=== PATIENT | female | born 1990 | race Caucasian/White ===

== ENCOUNTER → 2020-03-13 08:19 | Outpatient (CLI) | payer OTHER, SELFPAY ==
--- NOTE | ~2020-03-13 | US_ITS ---
EXAMINATION: US OB transvaginal DATE: 03/13/2020 08:50 INDICATION: Uncertain dates. TECHNIQUE: Real-time transvaginal pelvic ultrasound was performed. COMPARISON: None. FINDINGS: The uterus measures 8.9 x 4.1 x 5.0 cm. There is an intrauterine gestational sac. A yolk sac is ident ified. The crown rump length measures 5 mm, which correlates with an estimated gestational age of 6 weeks and 1 day(s) (+/-) 4 day(s). heart motion is identified measuring 122 beats per min [place] (bpm) by M-mode Doppler. There is a small subchorionic hematoma. The right ovary measures 2.8 x 1 .9 x 3.0 cm. The left ovary measures 4.0 x 2.1 x 2.5 cm. There is no free fluid in the pelvis. IMPRESSION: 1. Single living intrauterine gestation with estimated date of delivery of 11/05/2020. 2. Small subchorionic hematoma. Reviewed, dictated and finalized at location A. IMPRESSION: 1. Single living intrauterine gestation with estimated date of delivery of 11/05. 2. Small subchorionic hematoma.
== END ==
PROVIDERS: PCP Family Medicine; Visit Provider Obstetrics & Gynecology
DX: Z36.9 Encounter for antenatal screening, unspecified (principal); Z3A.00 Weeks of gestation of pregnancy not specified; O46.90 Antepartum hemorrhage, unspecified, unspecified trimester
CPT/HCPCS: 76817

== ENCOUNTER → 2020-04-10 08:25 | Outpatient (CLI) | payer OTHER, SELFPAY ==
--- NOTE | ~2020-04-10 | US_ITS ---
EXAMINATION: US OB limited DATE: 04/10/2020 08:50 INDICATION: Subchorionic hemorrhage follow-up TECHNIQUE: Real-time transabdominal and transvaginal obstetric ultrasound. FINDINGS: Ultrasound dated 03/13/2020 The uterus measures 10.2 x 7.9 x 9.1 cm. There is a small subchorionic hemorrhage measuring 1.2 x 1 x 0.5 cm. There is an intrauterine gestational sac, with pole identified. heart rate is 17 4 BPM. IMPRESSION: 1. Single living intrauterine with heart rate of 173 BPM. 2: Small residual subchorionic hemorrhage measuring 12 x 10 x 5 mm. Reviewed, dictated and finalized at location A.
== END ==
PROVIDERS: Visit Provider Obstetrics & Gynecology
DX: O36.8910 Maternal care for other specified fetal problems, first trimester, not applicable or unspecified (principal)
CPT/HCPCS: 76815

== ENCOUNTER → 2020-05-08 09:21 | Outpatient (CLI) | payer OTHER, SELFPAY ==
--- NOTE | ~2020-05-08 | US_ITS ---
US OB limited 05/08/2020 10:01 Indication: Follow up subchorionic hemorrhage Procedure: High-resolution Limited obstetrical ultrasound Comparison: Ultrasound dated 04/10/2020 Findings: There is a single living intrauterine with heart rate of 156 BPM. Uterus me asures 12.9 x 1.9 x 10.7 cm. There is an echogenic band in the lower aspect of the gestational sac wi th adjacent cystic structure measuring 2.2 x 2.1 x 1.3 cm. No free fluid in the pelvis. Impression: 1: Single living intrauterine with heart rate of 156 BPM. 2: Small cystic structure with adjacent echogenic band inferior aspect of the gestational sac measuri ng 2.2 x 2.1 x 1.3 cm. Differential diagnosis includes subchorionic hemorrhage, and less likely synec hia or chorionic band. Reviewed, dictated and finalized at location A. Impression: 1: Single living intrauterine with heart rate of 156 BPM. 2: Small cystic structure with adjacent echogenic band inferior aspect of the g estational sac measuring 2.2 x 2.1 x 1.3 cm. Differential diagnosis includes oliver bchorionic hemorrhage, and less likely synechia or chorionic band.
== END ==
PROVIDERS: Visit Provider Obstetrics & Gynecology
DX: O36.8910 Maternal care for other specified fetal problems, first trimester, not applicable or unspecified (principal)
CPT/HCPCS: 76815

== ENCOUNTER 2020-09-08 16:29 | Observation (INO) | payer OTHER, SELFPAY ==
[2020-09-08] VITALS (9 sets, daily range): BP systolic 111–132; BP diastolic 63–81; PULSE 88–105; TEMP 36.8; BMI 24.5
--- NOTE | ~2020-09-08 | US_ITS ---
EXAMINATION: US OB follow up DATE: 09/08/2020 18:30 INDICATION: labor during third trimester of TECHNIQUE: Real-time ultrasound of the pelvis was performed. The interpreting radiologist was not pre sent for the study. COMPARISON: None. FINDINGS: There is a single living fetus in vertex presentation. The placenta is anterior appears normal with no retroplacental subchorionic hematoma. heart rate is 149 beats per minute (bpm). The amniotic fluid is subjectively normal. Additional anechoic fluid is seen peripheral to a thin curvilinear lik sylvester amniotic membrane suggesting chorioamnionic separation. Differential would include subchorionic h emorrhage remote from the placenta or subchorionic band. The following biometric data were obtained: BPD: 8.5 cm -> 34 weeks 1 days Head circumference: 31.0 cm -> 34 weeks 5 days Abdominal circumference: 29.6 cm -> 33 weeks 4 days Femur length: 6.5 cm -> 33 weeks 5 days These measurements are concordant. Head circumference to abdominal circumference ratio: 1.05 (normal range 0.95-1.11). Estimated weight: 2273 g (+/-) 341 g. or 5 lbs. 0 oz. (+/-) 12 oz. IMPRESSION: 1. Single living fetus in vertex presentation with heart rate of 149 bpm. 2. Increase in size of appears be an extra amniotic anechoic fluid collection suggesting progression of chorioamnionic separation. Differential would include enlarging subchorionic hematoma or an incomp lete amniotic band. Findings were discussed with Ambar cooney, the nurse caring for the patient, at 7:0 0 PM. 3. Estimated weight is 81st percentile by Hadlock criteria when 10/31/2020 is used as the estimat ed date of delivery (ESTHER). Please correlate with clinical information or earlier ultrasounds for most accurate ESTHER. Reviewed, dictated and finalized at location A. SUPERVISOR IMPRESSION: 1. Single living fetus in vertex presentation with heart rate of 149 bpm. 2. Increase in size of appears be an extra amniotic anechoic fluid collection s uggesting progression of chorioamnionic separation. Differential would include enlarging subchorionic hematoma or an incomplete amniotic band. Findings were d iscussed with Ambar cooney, the nurse caring for the patient, at 7:00 PM. 3. Estimated weight is 81st percentile by Hadlock criteria when 10/31/2020 is used as the estimated date of delivery (ESTHER). Please correlate with clinical information or earlier ultrasounds for most accurate ESTHER.
--- NOTE | 2020-09-08 16:29 | OBADM ---
This patient, Susu Lomeli, admitted to the OB room [facility] for observation. Patient/family oriented to hospital policies and general routines including ID bracelet, bed and alarms, visiting hours, pain management, procedures, bathroom and other care routines, personal items, smoking policy, room service/diet, and visiting hours. Patient/Family are encouraged to report perceived risks to care and to ask questions if they do not understand what they are told or what they should do.
[2020-09-08] MEDS: TERBUTALINE SULFATE 1 MG/ML VIAL 0.25 MG SUB-Q (17:10)
[2020-09-08] MEDS: LACTATED RINGERS 1,000 ML 75 ML IV CONT (17:15)
[2020-09-08] MEDS: MAGNESIUM SULF 4 GM/WATER100ML 4 GM/100 ML BAG IVPB (17:15)
[2020-09-08] MEDS: BETAMETHASONE SOD PHOS/ACETATE 30 MG/5 ML VIAL 12 MG IM (17:18)
[2020-09-08] MEDS: AMPICILLIN 2 GM/NS 100 ML 2 GM/100 ML BAG IVPB (17:21)
[2020-09-08 17:30] LABS: Basophils Absolute Auto 0.1 K/mm3 (0.0-0.1); Basophils Percent Auto 0.6 % (0.2-1.2); Eosinophils Absolute Auto 0.2 K/mm3 (0-0.3); Eosinophils Percent Auto 1.9 % (0-4.4); Hematocrit 38.8 % (37.0-47.0); Hemoglobin 13.5 g/dL (12.0-15.0); Immature Granulocyte Absolute 0.28 K/mm3 (0.00-0.031); Immature Granulocyte Percent A 2.7 % (0-0.5); Lymphocytes Absolute Auto 1.53 K/mm3 (0.9-3.2); Lymphocytes Percent Auto 14.7 % (18.3-44.2); Mean Corpuscular HGB Conc 34.8 g/dl (32-36); Mean Corpuscular Hemoglobin 31.3 pg (26-34); Mean Corpuscular Volume 89.8 fl (80-100); Mean Platelet Volume 11.9 fl (7.4-10.4); Monocytes Absolute Auto 0.8 K/mm3 (0.1-0.6); Monocytes Percent Auto 7.2 % (2.6-8.5); Neutrophils Absolute Auto 7.6 K/mm3 (1.3-6.7); Neutrophils Percent Auto 72.9 % (45.5-73.1); Platelet Count Result 156 k/mm3 (150-375); Red Blood Count 4.32 M/mm3 (4.2-5.4); Red Cell Distribution Width 12.8 % (11.5-14.5); White Blood Count 10.4 K/mm3 (4.5-10.0)
[2020-09-08 17:43] LABS: Anion Gap 9 mmol/L (8-16); Blood Urea Nitrogen 6 mg/dL (7-17); Calcium 8.5 mg/dL (8.4-10.2); Carbon Dioxide 21 mmol/L (22-30); Chloride 105 mmol/L (98-107); Estimated Glomerular Filt Rate > 60; Glucose 87 mg/dL (65-105); Sodium 135 mmol/L (137-145)
[2020-09-08] MEDS: MAGNESIUM SULF 20GM/WATER500ML 500 ML 50 MG IV CONT (17:46)
--- NOTE | 2020-09-08 18:30 | PC.NURSE ---
SEE OBIX DOCUMENTATION
--- NOTE | 2020-09-08 19:25 | PC.NURSE ---
ULtrasound report called to Dr. Baldwin. Await transport team. Pt feels an occasional contraction. Orders received increase Magnesium.
--- NOTE | 2020-09-08 19:40 | PC.NURSE ---
Transport team here. Dee JAY updated on condition.
--- NOTE | 2020-09-08 19:59 | PC.NURSE ---
Addendum entered by Jonnathan Valdez RN 09/08/20 20:00: TIME NOTE 1950 Original Note: To [facility] per transport team.
--- NOTE | 2020-10-02 09:26 | PM.TDS ---
Transfer Discharge Sum: Prov Provider Date of admission: 09/08/20 16:29 Primary care physician: Michael Minaya MD Admitting clinician: Nazario Baldwin MD DS: Admitting Diagnosis Admitting Diagnosis Admitting Diagnosis: labor DS: Discharge Diagnosis Discharge Diagnosis (1) labor in third trimester: Qualifiers: labor delivery status: without delivery Qualified Code(s): O60.03 - labor without delivery, third trimester Code(s): O60.03 - labor without delivery, third trimester Status: Acute Transfer Discharge Sum: Med Medications Active and Home Medications: Home Medications norethindrone 1 mg-ethinyl estradiol 20 mcg (21)-iron 75 mg (7) tablet 1 tablet PO DAILY 09/09/19 [History] melatonin 5 mg tablet 5 mg PO .QHS PRN tablet 11/07/19 [History] multivitamin 1 tablet PO DAILY 11/07/19 [History] sertraline 25 mg tablet See Rx Instructions .ROUTE .COMPLEX #30 tablet 08/06/20 [Rx] Transfer Discharge Sum: Hosp Hospital Course Hospital course: Susu Lomeli is a 30 year old female was seen in office for routine ob vist and reported a change in vaginal discharge. An exam was done and patient was noted to be 4cm dilated with bulgy bag and sent to [facility] for evaluation. patient having contraction q 2mins and started and magnesium for contraction, steroids for lung maturity, and ampicillin for GBS prophylaxis. Contraction were spaced to 10 min apart and was able to transfer patient to a tertiary center. Time Spent with Patient Time attestation: Total time spent providing and/or coordinating transfer services: Exam Chest: Chest palpation & inspection: normal inspection of the chest Resp: Effort & Inspection: normal respiratory effort Auscultation: clear to auscultation bilaterally GI: Other: Gravid abdomen measuring 33 cm : Speculum Exam - Vagina: normal appearance of the vagina
--- NOTE | 2020-11-04 08:00 | PM.OBDSVD ---
DS: Admitting Diagnosis Admitting Diagnosis Admitting Diagnosis: labor DS: Discharge Diagnosis Discharge Diagnosis (1) labor in third trimester: Code(s): O60.03 - labor without delivery, third trimester Status: Acute OB - DS: Summary OB Procedures : NST and Ultrasound OB Procedures Intrapartum: Other OB Procedures: : None Status at Discharge Overall status at discharge: other (Patient admitted started on Magnesium sulfate for labor, betamethasone and ampicillin. Patient stabilized and transfered to [facility] for tertiarty care. ) Time Spent with Patient Time attestation: Total time spent providing and/or coordinating discharge services: Discharge Plan Discharge Attending physician on discharge: Nazario Baldwin Consulting providers: Josemanuel Borden Discharging Clinician: Nazario Baldwin Patient Disposition: Acute Care Hospital Activity: no shower, no straining and pelvic rest Diet: NPO Follow-up/Referrals: Nazario Baldwin MD [Physician] - Discharge Medications: Continued sertraline 25 mg tablet See Rx Instructions .ROUTE .COMPLEX Qty: 30 RF: 5 Discontinued norethindrone-e.estradiol-iron [Michael Fe / (28)] 1 mg-20 mcg (21)/75 mg (7) tablet 1 tablet PO DAILY RF: 0 multivitamin Tablet 1 tablet PO DAILY RF: 0 melatonin 5 mg tablet 5 mg PO .QHS PRNRF: 0 Date of admission: 09/08/20 16:29 Primary Care Provider: Michael Minaya Admitting Provider: Nazario Baldwin Attending physician on admission: Nazario Baldwin Condition: Stable
== END 2020-09-08 19:50 | disposition short-term general hospital (02) ==
LOC: ANHOBPP 16:35
PROVIDERS: Admitting Provider Obstetrics & Gynecology; PCP Family Medicine; Visit Provider Obstetrics & Gynecology
DX: O60.03 Preterm labor without delivery, third trimester (principal); Z3A.32 32 weeks gestation of pregnancy
CPT/HCPCS: 36415; 76816; 80048; 85025; 96372; 96374; 96375; 96376; G0378; G0379; J0290; J0702; J3105; J3475; J7120